=== PATIENT | male | born 1995 | race Hispanic/Latino ===

== ENCOUNTER → 2018-10-23 | Outpatient (CLI) | payer OTHER ==
--- NOTE | 2018-10-23 17:04 | REP ---
Left foot series: Four views. History: Injury in a fall. Findings: Overall mineralization pattern is normal. There is no evidence of fracture or subluxation. Bones, joints and soft tissues are unremarkable. Impression: No fracture noted. Negative radiographs of the left foot. Electronically Signed by Robert Larios MD 10/23/2018 04:55 P
== END ==
LOC: M RAD 16:36
PROVIDERS: ATTEND Physician Assistant Medical
DX: S99.922A Unspecified injury of left foot, initial encounter (principal); X58.XXXA Exposure to other specified factors, initial encounter; Y92.9 Unspecified place or not applicable

== ENCOUNTER 2018-12-01 17:18 | Emergency (ER) | payer OTHER ==
[~2018-12-01] VITALS: Ht 170.2 cm; Wt 65.9 kg
[2018-12-01 17:18] VITALS: BP 135/67
[2018-12-01] MEDS ORDERED: NAPROXEN 250 MG TAB PO ONE (17:45)
[2018-12-01] MEDS ORDERED: METHOCARBAMOL 500 MG TAB PO ONE (17:45)
[2018-12-01] MEDS ORDERED: ROBA500T PO (17:52)
[2018-12-01] MEDS ORDERED: NAPR-50 PO (17:52)
== END 2018-12-01 18:00 | disposition home or self-care (01) ==
LOC: M ED 17:18
DX: M62.830 Muscle spasm of back (principal); G89.29 Other chronic pain; M54.9 Dorsalgia, unspecified

== ENCOUNTER 2019-02-12 09:58 | Emergency (ER) | payer OTHER ==
[~2019-02-12] VITALS: Ht 170.2 cm; Wt 72.7 kg
[~2019-02-12 09:58] MED LIST: NAPR-837 PO; ROBA500T PO
[2019-02-12] MEDS ORDERED: ZOLO25TA PO (10:09)
[2019-02-12] MEDS ORDERED: atarax PO (10:09)
[2019-02-12] MEDS ORDERED: TRAZ-160 PO (10:09)
[2019-02-12 10:35] LABS: HEMATOCRIT 42.8 % (42.0-52.0); HEMOGLOBIN 13.8 g/dl (13.5-17.5); MEAN CORPUSCULAR HEMOGLOBIN 26.6 pg (27.0-33.0); MEAN CORPUSCULAR HGB CONC 32.2 g/dl (32.0-36.5); MEAN CORPUSCULAR VOLUME 82.6 fl (80.0-96.0); PLATELET COUNT, AUTOMATED 259 10^3/uL (150-450); RED BLOOD COUNT 5.18 10^6/uL (4.30-6.10); WHITE BLOOD COUNT 6.8 10^3/uL (4.0-10.0)
[2019-02-12 11:05] LABS: ACETAMINOPHEN LEVEL < 2.0 UG/ML (10.0-30.0); ALBUMIN 4.3 GM/DL (3.2-5.2); ALT/SGPT 76 U/L (12-78); BILIRUBIN,DIRECT < 0.1 MG/DL (0.0-0.2); BILIRUBIN,TOTAL 0.2 MG/DL (0.2-1.0); BLOOD UREA NITROGEN 17 MG/DL (7-18); CALCIUM LEVEL 9.1 MG/DL (8.5-10.1); CARBON DIOXIDE LEVEL 27 MEQ/L (21-32); CHLORIDE LEVEL 107 MEQ/L (98-107); CREATININE FOR GFR 0.94 MG/DL (0.70-1.30); ETHYL ALCOHOL (ETHANOL) < 0.003 % (0.000-0.010); GLOMERULAR FILTRATION RATE > 60.0 (>60); GLUCOSE, FASTING 100 MG/DL (70-100); POTASSIUM SERUM 4.1 MEQ/L (3.5-5.1); SALICYLATE LEVEL < 1.7 MG/DL (5.0-30.0); SODIUM LEVEL 139 MEQ/L (136-145); THYROID STIMULATING HORMONE 0.913 uIU/ML (0.358-3.740); TOTAL PROTEIN 7.6 GM/DL (6.4-8.2)
[2019-02-12 11:37] VITALS: BP 136/63
== END 2019-02-12 11:38 | disposition home or self-care (01) ==
LOC: M ED 09:58
DX: F41.9 Anxiety disorder, unspecified (principal); Z79.899 Other long term (current) drug therapy
CPT/HCPCS: 80048; 80076; 84443; 85027; 99284; G0480

== ENCOUNTER 2019-07-04 19:28 | Inpatient (IN) | payer OTHER ==
[~2019-07-04] VITALS: Ht 167.6 cm; Wt 75.2 kg
[~2019-07-04 19:28] MED LIST changes: +TRAZ-252 PO; +ZOLO25TA PO; +atarax PO
[2019-07-04] MEDS ORDERED: NALOXONE INJ 2 MG/2 ML SYRINGE (J2310) As Ordered ONE (19:32)
[2019-07-04] MEDS ORDERED: NALOXONE INJ 2 MG/2 ML SYRINGE (J2310) IV ONE (19:45)
[2019-07-04 19:56] LABS: BASO % 0.5 % (0.0-1.0); EOS # 0.3 10^3/uL (0.0-0.5); EOS % 2.9 % (0.0-3.0); HEMATOCRIT 41.7 % (42.0-52.0); HEMOGLOBIN 13.8 g/dl (13.5-17.5); LYMPH # 2.7 10^3/uL (1.5-5.0); LYMPH % 31.2 % (24.0-44.0); MEAN CORPUSCULAR HEMOGLOBIN 27.4 pg (27.0-33.0); MEAN CORPUSCULAR HGB CONC 33.1 g/dl (32.0-36.5); MEAN CORPUSCULAR VOLUME 82.7 fl (80.0-96.0); MONO # 0.6 10^3/uL (0.0-0.8); MONO % 7.5 % (0.0-5.0); NEUTROPHILS # 4.9 10^3/uL (1.5-8.5); NEUTROPHILS % 57.3 % (36.0-66.0); PLATELET COUNT, AUTOMATED 247 10^3/uL (150-450); RED BLOOD COUNT 5.04 10^6/uL (4.30-6.10); WHITE BLOOD COUNT 8.5 10^3/uL (4.0-10.0)
[2019-07-04 20:30] LABS: ALBUMIN 3.9 GM/DL (3.2-5.2); ALT/SGPT 72 U/L (12-78); BILIRUBIN,DIRECT 0.1 MG/DL (0.0-0.2); BILIRUBIN,TOTAL 0.5 MG/DL (0.2-1.0); BLOOD UREA NITROGEN 21 MG/DL (7-18); CALCIUM LEVEL 8.6 MG/DL (8.5-10.1); CARBON DIOXIDE LEVEL 25 MEQ/L (21-32); CHLORIDE LEVEL 103 MEQ/L (98-107); CPK CREATINE PHOSPHOKINASE 172 U/L (39-308); CREATININE FOR GFR 1.25 MG/DL (0.70-1.30); ETHYL ALCOHOL (ETHANOL) < 0.003 % (0.000-0.010); GLOMERULAR FILTRATION RATE > 60.0 (>60); GLUCOSE, FASTING 110 MG/DL (70-100); POTASSIUM SERUM 3.1 MEQ/L (3.5-5.1); SALICYLATE LEVEL < 1.7 MG/DL (5.0-30.0); SODIUM LEVEL 139 MEQ/L (136-145); TOTAL PROTEIN 7.3 GM/DL (6.4-8.2)
[2019-07-04] MEDS ORDERED: NS 1,000 ML IV ONE ×2 (20:30→23:15)
[2019-07-04] MEDS ORDERED: LIDOCAINE 2% 5ML JELLY UROJET TOP ONE (20:30)
[2019-07-04 20:31] LABS: ACETAMINOPHEN LEVEL < 2.0 UG/ML (10.0-30.0)
[2019-07-04 21:25] LABS: AMPHETAMINES LEVEL URINE NEGATIVE (NEGATIVE); BARBITURATES URINE NEGATIVE (NEGATIVE); BENZODIAZEPINES URINE NEGATIVE (NEGATIVE); CANNABINOIDS URINE NEGATIVE (NEGATIVE); COCAINE METABOLITE URINE NEGATIVE (NEGATIVE); METHADONE URINE NEGATIVE (NEGATIVE); OPIATES URINE NEGATIVE (NEGATIVE); PHENCYCLIDINE URINE NEGATIVE (NEGATIVE)
[2019-07-05] VITALS (7 sets, daily range): BP systolic 100–119; BP diastolic 55–68
--- NOTE | 2019-07-05 00:11 | ECGEPIP ---
[facility] - ED Test Date: 2019-07-04 Pat Name: CHYNA ROLLINS Department: Room: - Gender: Male Emergency Services Professional: JENNA : 1995 Requested By: Dash Bingham Order Number: [id number] Reading MD: Dash Albert Measurements Intervals [place] Rate: 112 P: 53 [place]: 134 QRS: 68 QRSD: 89 T: -7 QT: 309 QTc: 422 Interpretive Statements SINUS TACHYCARDIA NONSPECIFIC ST & T-WAVE ABNORMALITY NO PRIORS FOR COMPARISON Electronically Signed on 07-05-2019 0:11:05 EDT by Dash Albert
[2019-07-05] MEDS ORDERED: PROZ20CA11 PO (00:39)
[2019-07-05] MEDS ORDERED: HYDR-3363 PO ×2 (00:39→05:33)
[2019-07-05] MEDS ORDERED: SERT-141 PO (00:39)
[2019-07-05] MEDS ORDERED: SERO50TA PO ×2 (00:41→05:33)
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
[2019-07-05] MEDS ORDERED: KCL 40MEQ IN D5/NS 1000ML 1,000 ML IV SCH ×2 (01:45→07:15)
[2019-07-05] MEDS: POTASSIUM CHLORIDE 10 MEQ SR TABLET PO SCH ×2 (01:45→09:00)
[2019-07-05 02:02] LABS: MAGNESIUM LEVEL 1.9 MG/DL (1.8-2.4)
--- NOTE | 2019-07-05 02:37 | REP ---
Clinical: Drug overdose . Comparison: None . Findings: The mediastinum and cardiac silhouette are stable and within normal limits for portable technique. The lung rahman are clear without acute consolidation, effusion, or pneumothorax. Skeletal structures are intact. Impression: No acute cardiopulmonary process appreciated. Electronically Signed by Jerome Johnson MD 07/05/2019 02:29 A
[2019-07-05] MEDS: KCL 40MEQ IN D5/NS 1000ML 1,000 ML IV SCH ×2 (03:19→07:00)
[2019-07-05] MEDS ORDERED: FLUO20CA19 PO (05:33)
[2019-07-05 07:09] LABS: HEMATOCRIT 39.3 % (42.0-52.0); HEMOGLOBIN 12.4 g/dl (13.5-17.5); MEAN CORPUSCULAR HEMOGLOBIN 27.4 pg (27.0-33.0); MEAN CORPUSCULAR HGB CONC 31.6 g/dl (32.0-36.5); MEAN CORPUSCULAR VOLUME 86.8 fl (80.0-96.0); PLATELET COUNT, AUTOMATED 208 10^3/uL (150-450); RED BLOOD COUNT 4.53 10^6/uL (4.30-6.10)
[2019-07-05 07:32] LABS: BLOOD UREA NITROGEN 13 MG/DL (7-18); CALCIUM LEVEL 8.1 MG/DL (8.5-10.1); CARBON DIOXIDE LEVEL 24 MEQ/L (21-32); CHLORIDE LEVEL 114 MEQ/L (98-107); CREATININE FOR GFR 0.96 MG/DL (0.70-1.30); GLOMERULAR FILTRATION RATE > 60.0 (>60); GLUCOSE, FASTING 87 MG/DL (70-100); MAGNESIUM LEVEL 2.8 MG/DL (1.8-2.4); POTASSIUM SERUM 4.1 MEQ/L (3.5-5.1); SODIUM LEVEL 143 MEQ/L (136-145)
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
--- NOTE | 2019-07-05 21:14 | ECGEPIP ---
[facility] Test Date: 2019-07-05 Pat Name: CHYNA ROLLINS Department: Room: [place] [address] Gender: Male Recovery Analyst: ROHIT : 1995 Requested By: NOAH RICKETTS Order Number: [id number] Reading MD: Esequiel Carmona Measurements Intervals [place] Rate: 94 P: 53 [place]: 151 QRS: 75 QRSD: 96 T: -18 QT: 321 QTc: 403 Interpretive Statements Normal sinus rhythm with sinus arrhythmia Nonspecific ST-T wave abnormalities Consider LVH Compared to prior tracing of 07/04/2019, heart rate is slower Electronically Signed on 07-05-2019 21:14:28 EDT by Esequiel Carmona
== END 2019-07-05 18:04 | DRG 917 ==
LOC: M ED 19:28 → M ED INP 07-05 01:36 → M ICU 07-05 03:02
PROVIDERS: ADMIT Internal Medicine; ATTEND Internal Medicine
DX: T43.592A Poisoning by other antipsychotics and neuroleptics, intentional self-harm, initial encounter (principal); G93.41 Metabolic encephalopathy; F32.9 Major depressive disorder, single episode, unspecified; E87.6 Hypokalemia; Z91.410 Personal history of adult physical and sexual abuse; F43.10 Post-traumatic stress disorder, unspecified

== ENCOUNTER 2019-07-05 16:52 | Inpatient (IN) | payer OTHER ==
[~2019-07-05] VITALS: Ht 170.2 cm; Wt 72.8 kg
[~2019-07-05 16:52] MED LIST changes: +FLUO20CA19 PO; +HYDR-3363 PO; +PROZ20CA11 PO; +SERO50TA PO; +SERT-141 PO
[2019-07-05] MEDS ORDERED: ACETAMINOPHEN TAB 650MG DOSE (2X325MG) PO PRN (17:15)
[2019-07-05] MEDS ORDERED: MOM 30ML SUSPENSION UDC PO PRN (17:15)
[2019-07-05] MEDS ORDERED: MAALOX 30 ML SUSP *UDC PO PRN (17:15)
[2019-07-05] MEDS ORDERED: traZODone 50 MG TAB PO PRN (21:00)
[2019-07-06 06:35] VITALS: BP 112/58
[2019-07-06] MEDS ORDERED: FLUoxetine 20 MG CAP PO SCH (09:00)
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
[2019-07-06 15:52] VITALS: BP 145/79
--- NOTE | 2019-07-06 18:27 | HPEPDOC ---
General Date of Admission Jul 05, 2019 at 18:10 Date of Service: Jul 06, 2019 Chief Complaint The patient is a 23-year-old male admitted with a reason for visit of Unspecified Depressive Disorder. Source: Patient Exam Limitations: No limitations Severity: Moderate History of Present Illness Patient is a 23-year-old male with past medical history of PTSD, depression who presented to the emergency room brought in by his after consuming 12-15 pills of Seroquel. Patient's noted that they were having difficulty with the relationship and he had consumed the pills shortly after. Patient was initially admitted to the Medical floor as he was excessively sedated then was transferred to [facility] once he was medically cleared. I am seeing the patient here for medical history and physical. Today he does not offer any complaints. Allergies Coded Allergies: No Known Drug Allergies (Verified Allergy, Unknown, 07/04/19) Past Medical History Medical History PTSD, Depression, Lumber degenerative disc disease, sciatica, Surgical History wisdom tooth removal Family History No family history of psychiatric disease or suicide. No family history of medical issues that the pateint is aware of as discussed with him. Social History * Smoker: Denies Alcohol: Denies Drugs: denies A-FIB/CHADSVASC A-FIB History Current/History of A-Fib/PAF?: No Review of Systems Constitutional: Denies: Chills, Fever, Night Sweats Eyes: Denies: Pain, Vision change ENT: Denies: Head Aches, Ear Pain, Dysphagia Skin: Denies: Rash, Lesions, Breakdown Pulmonary: Denies: Dyspnea, Cough Cardiovascular: Denies: Chest Pain, Palpitations, Orthopnea, Paroxysmal Noc. Dyspnea, Lt Headedness Gastrointestinal: Denies: Nausea, Vomiting, Abdominal Pain, Diarrhea Genitourinary: Denies: Dysuria, Frequency, Incontinence, Retention Hematologic: Denies: Bruising, Bleeding Excessively Musculoskeletal: Denies: Neck Pain, Back Pain, Joint Pain, Muscle Pain, Spasms Physical Examination General Exam: Positive: Alert, Cooperative, No Acute Distress Eye Exam: Positive: PERRLA, Conjunctiva & lids normal, EOMI; Negative: Sclera icteric ENT Exam: Positive: Atraumatic, Mucous membr. moist/pink, Pharynx Normal Neck Exam: Positive: Supple; Negative: JVD, thyromegaly Chest Exam: Positive: Clear to auscultation, Normal air movement Heart Exam: Positive: Rate Normal, Regular Rhythm, Normal S1, Normal S2; Negative: Murmurs, Rubs Abdomen Exam: Positive: Normal bowel sounds, Soft; Negative: Tenderness, Hepatospenomegaly Extremity Exam: Positive: Normal pulses; Negative: Clubbing, Cyanosis, Edema Skin Exam: Positive: Nl turgor and temperature; Negative: Breakdown, Lesion Vital Signs Vital Signs Date Time Temp Pulse Resp B/P (MAP) Pulse Ox O2 Delivery O2 Flow Rate FiO2 07/06/19 06:35 98.0 83 16 112/58 (76) Assessment/Plan Patient is a 23-year-old male with past medical history of PTSD, depression who presented to the emergency room brought in by his after consuming 12-15 pills of Seroquel. Patient's noted that they were having difficulty with the relationship and he had consumed the pills shortly after. Patient was initially admitted to the Medical floor as he was excessively sedated then was transferred to [facility] once he was medically cleared. I am seeing the patient here for medical history and physical. At this time there is no active medical problems please reconsult as needed. Psychiatric Issues as per psychiatry. Plan / VTE VTE Prophylaxis Ordered?: No (freely ambulatory) RODOLFO AGUILAR MD Jul 06, 2019 15:23
[2019-07-07 06:38] VITALS: BP 98/49
[2019-07-07] MEDS: FLUoxetine 10 MG CAP PO SCH (09:00)
[2019-07-07] MEDS ORDERED: FLUO10CA8 PO (12:12)
--- NOTE | 2019-07-07 12:59 | MHIPNPDOC ---
[facility] Progress Note Progress Note Inpatient Progress Note [facility] MRN: N/A Date of : N/A Date of Service: 07/07/2019 History of Present Illness The patient a 23-year-old man who was seen in consultation by myself for a reported suicidal overdose, is seen after his presentation to the inpatient mental health unit. He describes that he is interested in care. He reports that he was curious about the Seroquels, he had noticed that after taking it, he had gotten some suicidal thoughts and wondered if there was a link. He reports that his mood was a little low today as he had not had a visit from his . He describes that he is looking forward to treatment and has been engaging well on the unit. He reports no major changes in his review of systems since yesterday other than the aforementioned. The psychosocial information is taken and updated from my previous consultation note. Interval History The patient is met with. He reports that he's feeling much improved. His mood, energy, concentration, focus are all improved. He's attending groups. He feels that he is "not meant to be here" as he states he has been doing well and misses his family. No behavioral problems, has been amenable on the unit. The patient has notably not taken his Prozac as he states that he feels that it only made him feel worse and that he wants to try therapy in [facility] to help with the trauma. Review Of Systems General: Denies fever or weight changes Cardiovascular: Denies Chest pain or palpations GI: Denies Nausea, vomiting, or bowel changes Respiratory: Denies shortness of breath or cough Neuro: Denies dizziness, tremors Derm: Denies any rashes or pruritus : Denies any dysuria or urinary dysfunction MSK: Denies any muscle tightness or stiffness HEENT: Denies any vision changes or headaches Heme/Lymph: denies any bruising or bleeding Endo: denies any cold/heat intolerance or water intake changes Psychotherapy None on this visit. Vital Signs Reviewed. Mental Status Examination General: Well dressed with good hygiene Speech: Spontaneous and fluid Thought processes: Linear and logical MSK: Smooth and coordinated gait, no signs of tremors or involuntary orofacial movements Thought content: Future orientated Abstract reasoning, and computation: Intact Description of associations: Intact Description of abnormal or psychotic thoughts: Denies any suicidal or homicidal ideation. Denies any auditory or visual hallucinations. Does not appear to be responding to internal stimuli. Does not appear to be endorsing any bizarre or paranoid ideation. Judgment: fair Insight: fair Orientation: Alert and orientated 3 Cognition: Grossly normal Recent and remote memory: Intact Attention span and concentration: Intact Fund of knowledge: Adequate Mood: "okay" Affect: Euthymic with a full range Diagnoses PTSD, chronic versus acute. Unspecified depressive disorder. Assessment and Plan PTSD, chronic: Discontinue Prozac at this time. Continue to monitor. Unspecified depressive disorder: As above. Disposition Discharge tomorrow. Patient wishes to go. Does not meet further involuntary criteria. Time Spent 20 minutes [id number]. Monday Vital Signs Vital Signs Date Time Temp Pulse Resp B/P (MAP) Pulse Ox O2 Delivery O2 Flow Rate FiO2 07/07/19 06:38 99.0 68 14 98/49 (65) Current Medications Current Medications Medications (Trade) Dose Ordered Sig/Vern Route PRN Reason Start Time Stop Time Status Last Admin Dose Admin Acetaminophen (Tylenol Tab) 650 mg Q6HP PRN PO HEADACHE or DISCOMFORT 07/05/19 17:15 Al Hydrox/Mg Hydrox/Simethicone (Mylanta) 30 ml Q4HP PRN PO HEARTBURN/INDIGESTION 07/05/19 17:15 Fluoxetine HCl (PROzac) 20 mg DAILY PO 07/06/19 09:00 07/06/19 10:53 DC Fluoxetine HCl (PROzac) 30 mg DAILY PO 07/07/19 09:00 Magnesium Hydroxide (Milk Of Magnesia) 30 ml DAILYPRN PRN PO CONSTIPATION 07/05/19 17:15 Trazodone HCl (Desyrel) 50 mg QHSP PRN PO INSOMNIA 07/05/19 21:00 Allergies Coded Allergies: No Known Drug Allergies (Verified Allergy, Unknown, 07/04/19) SIMON DENNIS DO Jul 07, 2019 12:59
[2019-07-07 15:39] VITALS: BP 125/74
[2019-07-08 06:34] VITALS: BP 124/67
[2019-07-08] MEDS: FLUoxetine 10 MG CAP PO SCH (08:50)
--- NOTE | 2019-07-08 10:29 | MHDSPDOC ---
[facility] Discharge Summary Discharge Summary DATE OF ADMISSION: Jul 05, 2019 at 18:10 DATE OF DISCHARGE: 07/08/19 Date of Service: 07/08/2019 Diagnoses PTSD, chronic versus acute. Unspecified depressive disorder. History of Present Illness The patient a 23-year-old man who was seen in consultation by myself for a reported suicidal overdose, is seen after his presentation to the inpatient mental health unit. He describes that he is interested in care. He reports that he was curious about the Seroquels, he had noticed that after taking it, he had gotten some suicidal thoughts and wondered if there was a link. He reports that his mood was a little low today as he had not had a visit from his . He describes that he is looking forward to treatment and has been engaging well on the unit. He reports no major changes in his review of systems since yesterday other than the aforementioned. The psychosocial information is taken and updated from my previous consultation note. Consultants Involved Hospitalist/PCP screening Treatment and Progress On The Unit Patient was admitted to the unit and subsequently evaluated. He was resumed on his home Prozac, but had been discontinued on Seroquel. He reported that he wasn't interested in continuing Prozac treatment as he reported as an outpatient made him feel worse. He has observed for the weekend where he had been denying any suicidal or homicidal thoughts and had failed to attend to his basic needs on the unit. He was not demonstrating signs or symptoms of severe depression or other impairing mental health processes, and thus he requested discharge on Monday. Did not meet involuntary criteria due to prominence of the factors above and declined further voluntary admission and thus was discharged in good charissa. 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 He's observed for a weekend where he is not demonstrating significant signs or symptoms of depression and no immediate safety concerns, and thus cannot be held on a further involuntary admission. Mental Status Examination General: Well dressed with good hygiene Speech: Spontaneous and fluid Thought processes: Linear and logical MSK: Smooth and coordinated gait, no signs of tremors or involuntary orofacial movements Thought content: Future orientated Abstract reasoning, and computation: Intact Description of associations: Intact Description of abnormal or psychotic thoughts: Denies any suicidal or homicidal ideation. Denies any auditory or visual hallucinations. Does not appear to be responding to internal stimuli. Does not appear to be endorsing any bizarre or paranoid ideation. Judgment: fair Insight: fair Orientation: Alert and orientated 3 Cognition: Grossly normal Recent and remote memory: Intact Attention span and concentration: Intact Fund of knowledge: Adequate Mood: "okay" Affect: Euthymic with a full range Follow Up The social work team worked during the predischarge meeting in order to evaluate for further issues of lethality address them fully before discharge. They worked on safety planning with the patient's family members in order to ensure that the patient will have a safe and effective discharge. Time Spent The amount of time spent in the coordination of care for this patient was approximately 30 minutes. Monday Vital Signs/I&Os Vital Signs Date Time Temp Pulse Resp B/P (MAP) Pulse Ox O2 Delivery O2 Flow Rate FiO2 07/08/19 06:34 97.4 62 12 124/67 (86) Medications Scheduled Fluoxetine HCl (Prozac) 20 Mg Capsule, 1 CAP PO DAILY for mood for 7 Days, #7 Allergies Coded Allergies: No Known Drug Allergies (Verified Allergy, Unknown, 07/04/19) SIMON DENNIS DO Jul 08, 2019 10:29
[2019-07-08] MEDS ORDERED: PROZ20CA11 PO (15:09)
== END 2019-07-08 13:15 | disposition home or self-care (01) | DRG 882 ==
LOC: M PSY 18:10
PROVIDERS: ADMIT Psychiatry & Neurology Addiction Medicine; ATTEND Psychiatry & Neurology Addiction Medicine
DX: F43.12 Post-traumatic stress disorder, chronic (principal); F43.11 Post-traumatic stress disorder, acute; F32.9 Major depressive disorder, single episode, unspecified; M51.16 Intervertebral disc disorders with radiculopathy, lumbar region; Z63.0 Problems in relationship with spouse or partner; Z79.899 Other long term (current) drug therapy; Z91.14 Patient's other noncompliance with medication regimen